=== PATIENT | male | born 2005 | race Caucasian/White ===

== ENCOUNTER 2024-02-29 19:12 | Emergency (ER) | payer OTHER ==
[~2024-02-29] VITALS: Ht 182.9 cm; Wt 68.2 kg
[2024-02-29 19:17] VITALS: TEMP 98.2
[2024-02-29] MEDS ORDERED: NS 1,000 ML IV ONE (19:45)
[2024-02-29] MEDS ORDERED: Ketorolac 15 MG/ML VIAL IV ONE (20:45)
[2024-02-29 20:47] VITALS: BP 150/60; PULSE 80
== END 2024-02-29 20:48 | disposition home or self-care (01) ==
LOC: COL.ER 19:12
DX: S43.004A Unspecified dislocation of right shoulder joint, initial encounter (principal); X58.XXXA Exposure to other specified factors, initial encounter; Y93.73 Activity, racquet and hand sports
CPT/HCPCS: J1885; J2704; J7030